=== PATIENT | female | born 1950 | race African-American/Black ===

== ENCOUNTER 2018-10-18 08:23 | Emergency (ER) | payer OTHER ==
[~2018-10-18] VITALS: Ht 152.4 cm; Wt 56.7 kg
--- NOTE | 2018-10-18 08:25 | NUR ---
Note undone in EDM - 10/18/18 at 0839 by DEANNA SARAVANAN EAGLE FROM [facility]. AAOX4. NAD, BREATHING EVEN AND UNLABORED. C/O BLEEDING PERMA CATH SITE ON [facility]. NO ACTIVE BLEEDING NOTED UPON ARRIVAL. CATH IS INTACT. TO ER BED 3. AWAITING MD. FOR EVAL AND ORDERS.
--- NOTE | 2018-10-18 08:25 | NUR ---
SARAVANAN EAGLE FROM [facility]. AAOX4. NAD, BREATHING EVEN AND UNLABORED. C/O BLEEDING PERMA CATH SITE ON [facility]. PT WAS REPORTED TO TO HAVE HD FOR 7 MIN WHEN BLEEDING NOTED. NO ACTIVE BLEEDING NOTED UPON ARRIVAL. CATH IS INTACT. TO ER BED 3. AWAITING MD. FOR EVAL AND ORDERS.
--- NOTE | 2018-10-18 08:33 | NUR ---
[facility] NOTIFIED NOT TO CANCEL CHAIR TIME FOR PT PER MD INSTRUCTION
--- NOTE | 2018-10-18 08:41 | NUR ---
XRAY AT BEDSIDE
[2018-10-18] MEDS ORDERED: LIDOCAINE HCL/PF 1% 30 ML SDV ONE (09:08)
--- NOTE | 2018-10-18 09:30 | NUR ---
CALLED [facility] FOR TRANSPORT BACK TO [facility], SPOKE TO CLAUDIA BARKER 1030, TRIP NUMBER: [id number]
--- NOTE | 2018-10-18 09:44 | NUR ---
REPORT GIVEN TO YONAS AT [facility]. AWARE OF PT RETURNING FOR DIALYSIS.
[2018-10-18] MEDS ORDERED: LIDOCAINE HCL/PF 1% 30 ML SDV IJ ONE (10:00)
[2018-10-18 10:04] VITALS: BP 106/52
--- NOTE | 2018-10-18 10:04 | NUR ---
Patient discharged to home in stable condition. Written and verbal after care instructions given. Patient verbalizes understanding of instruction.
== END 2018-10-18 10:05 | disposition home or self-care (01) ==
LOC: ER 08:25
DX: T82.838A Hemorrhage due to vascular prosthetic devices, implants and grafts, initial encounter (principal); I12.0 Hypertensive chronic kidney disease with stage 5 chronic kidney disease or end stage renal disease; E11.22 Type 2 diabetes mellitus with diabetic chronic kidney disease; N18.6 End stage renal disease; Z99.2 Dependence on renal dialysis
CPT/HCPCS: 71045; 99284; A6402; J3490

== ENCOUNTER 2020-09-27 10:30 | Outpatient (CLI) | payer MEDICARE, OTHER ==
[2020-09-27] MEDS ORDERED: CLOTRIMAZOLE 1% 15 GM TUBE TP ONE (11:28)
== END 2020-09-27 23:59 | disposition home or self-care (01) ==
LOC: WOU 10:30
PROVIDERS: ATTEND Podiatrist Foot & Ankle Surgery
DX: L60.3 Nail dystrophy (principal); B35.1 Tinea unguium; E11.40 Type 2 diabetes mellitus with diabetic neuropathy, unspecified; M79.672 Pain in left foot; M79.671 Pain in right foot; Z79.01 Long term (current) use of anticoagulants; E11.22 Type 2 diabetes mellitus with diabetic chronic kidney disease; I12.0 Hypertensive chronic kidney disease with stage 5 chronic kidney disease or end stage renal disease; N18.6 End stage renal disease; Z87.891 Personal history of nicotine dependence
CPT/HCPCS: G0463

== ENCOUNTER 2021-04-28 10:44 | Outpatient (CLI) | payer MEDICARE, OTHER ==
[2021-04-28 12:55] LABS: BASOPHILS # (AUTO) 0.1 K/uL (0.0-0.2); BASOPHILS % (AUTO) 0.9 % (0.0-2.0); EOSINOPHILS % (AUTO) 6.8 % (0.0-6.0); HEMATOCRIT 40 % (33-45); HEMOGLOBIN 13.1 g/dL (11.5-14.8); LYMPHOCYTES # (AUTO) 1.8 K/uL (0.8-4.8); LYMPHOCYTES % (AUTO) 29.3 % (20.0-44.0); MEAN CORPUSCULAR HGB CONC 33 g/dl (31.0-36.0); MEAN CORPUSCULAR VOLUME 89 fL (82-100); MONOCYTES # (AUTO) 0.5 K/uL (0.1-1.30); MONOCYTES % (AUTO) 7.7 % (2.0-12.0); NEUTROPHILS # (AUTO) 3.4 K/uL (1.8-8.9); NEUTROPHILS % (AUTO) 55.3 % (43.0-81.0); PLATELET COUNT (AUTO) 288 K/uL (150-450); RED BLOOD CELL COUNT(AUTO) 4.45 MIL/uL (4.0-5.2); WHITE BLOOD COUNT (AUTO) 6.2 K/uL (4.3-11.0)
[2021-04-28 13:11] LABS: ALBUMIN 3.7 g/dL (3.4-5.0); BILIRUBIN,TOTAL 0.3 mg/dL (0.2-1.0); CALCIUM, SERUM 9.4 mg/dL (8.5-10.1); CREATININE 1.9 mg/dL (0.6-1.3); MAGNESIUM 1.6 mg/dL (1.8-2.4); PHOSPHORUS 3.2 mg/dL (2.5-4.9); POTASSIUM 4.8 mmol/L (3.5-5.1); TOTAL PROTEIN, SERUM 8.3 g/dL (6.4-8.2)
== END 2021-04-28 23:59 | disposition home or self-care (01) ==
LOC: MSC 10:44
PROVIDERS: ATTEND Internal Medicine
DX: I12.9 Hypertensive chronic kidney disease with stage 1 through stage 4 chronic kidney disease, or unspecified chronic kidney disease (principal); N18.9 Chronic kidney disease, unspecified; N17.9 Acute kidney failure, unspecified; E83.9 Disorder of mineral metabolism, unspecified; M89.9 Disorder of bone, unspecified; D64.9 Anemia, unspecified; K21.9 Gastro-esophageal reflux disease without esophagitis; E03.9 Hypothyroidism, unspecified; Z79.890 Hormone replacement therapy; I82.90 Acute embolism and thrombosis of unspecified vein; Z79.899 Other long term (current) drug therapy
CPT/HCPCS: 36415; 80053; 82306; 83036; 83735; 83970; 84100; 85025; G0463